=== PATIENT | male | born 1990 | race Caucasian/White ===

== ENCOUNTER 2022-10-16 06:55 | Outpatient (CLI) | payer OTHER | END 2022-10-16 07:01 | disposition home or self-care (01) | LOC: LAB 06:55 | PROVIDERS: ATTEND Obstetrics & Gynecology | DX: Z20.828 Contact with and (suspected) exposure to other viral communicable diseases (principal); Z20.818 Contact with and (suspected) exposure to other bacterial communicable diseases ==